=== PATIENT | female | born 1995 | race Caucasian/White ===

== ENCOUNTER 2017-03-30 16:01 | Emergency (ER) | END 2017-03-30 22:46 | disposition home or self-care (01) ==

== ENCOUNTER 2018-08-15 09:32 | Emergency (ER) | payer BC, MEDICAID ==
[~2018-08-15] VITALS: Ht 162.6 cm; Wt 105.0 kg
[~2018-08-15 09:32] MED LIST: DICY10CA40 PO; ETHY1TAB2 PO; IBUP-1542 PO; ONDA4TAB35 PO; TRAM50TA2 PO
[2018-08-15 09:36] VITALS: RESP 18; Ht 162.6 cm; Wt 105.0 kg
[2018-08-15] MEDS ORDERED: ONDANSETRON 4 MG INJ IV STA (10:16)
[2018-08-15] MEDS ORDERED: KETOROLAC 30 MG INJ IV STA (10:16)
[2018-08-15] MEDS ORDERED: SOD CHLORIDE 0.9% 1,000 ML IV STA (10:16)
[2018-08-15] MEDS ORDERED: SOD CHLORIDE 0.9% 100 ML ONE (12:01)
[2018-08-15] MEDS ORDERED: IOHEXOL 300MG/ML 150 ML BTL ONE (12:01)
[2018-08-15] MEDS ORDERED: NITR-58 PO (12:36)
[2018-08-15] MEDS ORDERED: ACET500C5 PO (12:36)
[2018-08-15] MEDS ORDERED: ONDA4TAB14 PO (13:25)
[2018-08-15 13:28] VITALS: BP 111/63; PULSE 55
--- NOTE | 2018-08-15 14:49 | ERD ---
ER Documentation Chief Complaint Chief Complaint AP X 4 WEEKS WORSEN X 3 DAYS HPI 22-year-old female presenting with abdominal pain x4 weeks. Patient states the pain is worsened over the last 3 days. Denies any vomiting. Denies diarrhea. Has normal urination. Denies chest pain or shortness of breath. Denies fevers. Has a history of PCOS. Allergy to penicillin. Surgical history denies. Social history denies ROS All systems reviewed and are negative except as per history of present illness. Medications Home Meds Active Scripts Ondansetron (Ondansetron Odt) 4 Mg Tab.rapdis, 4 MG PO Q6H PRN for NAUSEA AND/OR VOMITING, #10 TAB Prov:RUDDY CABRAL PA-C 08/15/18 Acetaminophen* (Tylophen*) 500 Mg Capsule, 2 CAP PO Q8H PRN for PAIN AND OR ELEVATED TEMP, #20 CAP Prov:RUDDY CABRAL PA-C 08/15/18 Nitrofurantoin Monohyd Macrocr* (Macrobid*) 100 Mg Capsr, 100 MG PO BID for 14 Days, CAP Prov:RUDDY CABRAL PA-C 08/15/18 Ethynodiol D-Ethinyl Estradiol (Zovia 1-35E Tablet) 1 Each Tablet, 1 EACH PO TID, #1 PACKET Take 1 pill every 8 hours until bleeding stops. Once bleeding stops, take 1 pill every 12 hours for 2 days only. After 2 day period, take 1 pill daily until pack is finished. Prov:DAMIEN MITTAL PA-C 03/30/17 Tramadol HCl (Tramadol HCl) 50 Mg Tablet, 50 MG PO Q4 PRN for PAIN, #20 TAB Prov:KELLIE PINZON NP 03/19/15 Ibuprofen* (Ibuprofen*) 600 Mg Tablet, 600 MG PO Q6H PRN for pa, #30 TAB Prov:KELLIE PINZON NP 03/19/15 Ondansetron Hcl* (Zofran* ODT) 4 mg -ODT Tab.disper, 4 MG PO Q4H PRN for NAUSEA AND OR VOMITING, #30 TAB Prov:KELLIE PINZON NP 03/19/15 Dicyclomine HCl (Dicyclomine HCl) 10 Mg Capsule, 10 MG PO QID, #30 CAP Prov:KELLIE PINZON [employer] 03/19/15 Reported Medications [none] Unknown Strength No Conflict Check 03/19/15 Allergies Allergies: Coded Allergies: Penicillins (Verified Allergy, Intermediate, RASH, 08/15/18) morphine (Verified Allergy, Unknown, 08/15/18) PMhx/Soc Medical and Surgical Hx: pt denies Medical Hx, pt denies Surgical Hx Hx Alcohol Use: No Hx Substance Use: No Hx Tobacco Use: No FmHx Family History: No diabetes, No coronary disease, No other Physical Exam Vitals Vital Signs Date Temp Pulse Resp B/P (MAP) Pulse Ox O2 O2 Flow FiO2 Time Delivery Rate 08/15/18 55 111/63 13:28 (79) 08/15/18 98.1 79 18 128/79 99 09:36 (95) Physical Exam GENERAL: The patient is well-appearing, well-nourished, in no acute distress HEENT: Atraumatic. Conjunctivae are pink. Pupils equal, round, and reactive to light. There is no scleral icterus. Tympanic membranes clear bilaterally. Oropharynx clear. NECK: C-spine is soft and supple. There is no meningismus. There is no cervical lymphadenopathy. CHEST: Clear to auscultation bilaterally. There are no rales, wheezes or rhonchi. HEART: Regular rate and rhythm. No murmurs, clicks, rubs or gallops. ABDOMEN:Soft, nontender and nondistended. Good bowel sounds. No rebound or guarding. No gross peritonitis. No gross organomegaly or masses. Result Diagram: 08/15/18 1020 08/15/18 1020 Results 24 hrs Laboratory Tests Test 08/15/18 10:20 08/15/18 10:33 White Blood Count 8.9 10^3/ul Red Blood Count 4.67 10^6/ul Hemoglobin 12.6 g/dl Hematocrit 39.5 % Mean Corpuscular Volume 84.6 fl Mean Corpuscular Hemoglobin 27.0 pg Mean Corpuscular Hemoglobin Concent 31.9 g/dl Red Cell Distribution Width 13.3 % Platelet Count 247 10^3/UL Mean Platelet Volume 9.1 fl Immature Granulocytes % 0.300 % Neutrophils % 57.8 % Lymphocytes % 33.6 % Monocytes % 6.7 % Eosinophils % 1.1 % Basophils % 0.5 % Nucleated Red Blood Cells % 0.0 /100WBC Immature Granulocytes # 0.030 10^3/ul Neutrophils # 5.1 10^3/ul Lymphocytes # 3.0 10^3/ul Monocytes # 0.6 10^3/ul Eosinophils # 0.1 10^3/ul Basophils # 0.0 10^3/ul Nucleated Red Blood Cells # 0.0 10^3/ul Urine Color YELLOW Urine Clarity SLIGHTLY CLOUDY Urine pH 5.0 Urine Specific [place] 1.027 Urine Ketones NEGATIVE mg/dL Urine Nitrite NEGATIVE mg/dL Urine Bilirubin NEGATIVE mg/dL Urine Urobilinogen NEGATIVE mg/dL Urine Leukocyte Esterase 1+ [place]/ul Urine Microscopic RBC 1 /HPF Urine Microscopic WBC 12 /HPF Urine Squamous Epithelial Cells FEW /HPF Urine Bacteria FEW /HPF Urine Mucus FEW /HPF Urine Hemoglobin NEGATIVE mg/dL Urine Glucose NEGATIVE mg/dL Urine Total Protein NEGATIVE mg/dl Sodium Level 142 mmol/L Potassium Level 4.0 mmol/L Chloride Level 106 mmol/L Carbon Dioxide Level 27 mmol/L Anion Gap 9 Blood Urea Nitrogen 15 mg/dl Creatinine 0.71 mg/dl Est Glomerular Filtrat Rate mL/min > 60 mL/min Glucose Level 84 mg/dl Calcium Level 9.2 mg/dl Total Bilirubin 0.7 mg/dl Direct Bilirubin 0.00 mg/dl Indirect Bilirubin 0.7 mg/dl Aspartate Amino Transf (AST/SGOT) 18 IU/L Alanine Aminotransferase (ALT/SGPT) 16 IU/L Alkaline Phosphatase 137 IU/L Total Protein 8.2 g/dl Albumin 4.4 g/dl Globulin 3.80 g/dl Albumin/Globulin Ratio 1.15 Lipase 212 U/L POC Beta HCG, Qualitative NEGATIVE Current Medications Medications Dose Sig/Josie Start Time Status Last (Trade) Ordered Route PRN Stop Time Admin Dose Reason Admin Sodium 1,000 ml @ Q1H STAT 08/15/18 DC 08/15/18 Chloride 1,000 mls/hr IV 10:16 10:38 08/15/18 11:15 Ondansetron 4 mg ONCE STAT 08/15/18 DC 08/15/18 HCl (Zofran IV 10:16 10:38 Inj) 08/15/18 10:17 Ketorolac 30 mg ONCE STAT 08/15/18 DC 08/15/18 Tromethamine IV 10:16 10:38 (Toradol) 08/15/18 10:17 Sodium 100 ml @ ud STK-MED 08/15/18 DC 08/15/18 Chloride ONCE .ROUTE 12:01 12:15 08/15/18 12:02 Iohexol 150 ml STK-MED 08/15/18 DC 08/15/18 (Omnipaque ONCE .ROUTE 12:01 12:15 300mg/ ml) 08/15/18 12:02 Procedures/MDM DIAGNOSTIC IMAGING REPORT Patient: JAMIE CROOKS : 1995 Age: 22 Sex: F MR #: [id number] DOS: 08/15/18 1016 Ordering MD: FRANKO CABRAL PA-C Location: [facility] Room/Bed: AMENDMENT: 08/15/2018 12:39:54 PM Armando Hernadez M.d PROCEDURE: CT Abdomen and pelvis with contrast. CLINICAL INDICATION: Abdominal pain TECHNIQUE: CT scan of the abdomen and pelvis with contrast was performed on a multidetector high-resolution CT scan. The patient was scanned following the uncomplicated intravenous administration of 100 cc Omnipaque 300. Coronal and sagittal reformatted images were obtained from the axial source images. Standard CT of the abdomen pelvis with contrast protocols were performed. The total exam CTDI equals 23.69 mGy and the total exam DLP equals 1304.62 mGy- cm. One or more of the following dose reduction techniques were used: - Automated exposure control. - Adjustment of the mA and/or kV according to patient size. Use of iterative reconstruction technique. Dicom images are available COMPARISON: CT abdomen pelvis 03/19/2015 FINDINGS: The kidneys are normal in size without calcified calculi hydronephrosis or intra renal masses bilaterally. No evidence ureteral calcified calculi or dilatation. Partially contracted urinary bladder with moderate circumferential urinary bl adder wall thickening likely all due to lack of optimal distension. Cystitis cannot be excluded. Anteverted anteflexed otherwise unremarkable uterus. No adnexal masses. No evidence of intra-abdominal free fluid, free air, abscesses or lymphadenopathy. Note there are prominent nonspecific lymph nodes in the right mid mesentery and rule out mesenteric lymphadenitis. Stomach, small bowel, large bowel and appendix are unremarkable. Aorta unremarkable. Abdominal pelvic wall unremarkable. Lung bases unremarkable. Osseous structures unremarkable. IMPRESSION: 1. No evidence of gastrointestinal disease. 2. No calcified urinary calculi or obstructive uropathy. 3. Prominent but nonspecific lymph nodes in the right mid mesentery may represent mesenteric lymphadenitis. No lymphadenopathy. DIAGNOSTIC IMAGING REPORT Patient: JAMIE CROOKS : 1995 Age: 22 Sex: F MR #: [id number] DOS: 08/15/18 1016 Ordering MD: FRANKO CABRAL PA-C Location: [facility] Room/Bed: PROCEDURE: US Pelvis CLINICAL INDICATION: Pelvic pain and lower abdominal pain. TECHNIQUE: Transabdominal and transvaginal sonographic evaluation of the pelvis was performed. COMPARISON: 03/30/2017. FINDINGS: Uterus is anteverted and measures 7 x 3.3 x 3.6 cm. Endometrium measures 7 mm in thickness, within normal limits. No uterine masses are seen. Right ovary measures 3.2 x 1.8 x 2.3 cm. Left ovary measures 3 x 2 x 2.6 cm. Multiple small follicles are seen in both ovaries. No suspicious adnexal masses are seen. There is no free pelvic fluid. IMPRESSION: 1. Unremarkable pelvic sonogram. MDM: 42-year-old female presenting with abdominal pain x4 weeks. Patient has findings consistent with urinary tract infection however CT scan and ultrasound are within normal limits. Patient is discharged with supportive medications. I have low suspicion for acute abdominal emergency at this time. Patient is told symptoms change or worsen to return immediately to the ER. Patient understood and compliant will return if symptoms change. All questions answered at discharge Departure Diagnosis: Primary Impression: UTI (urinary tract infection) Additional Impression: Abdominal pain Condition: Stable Patient Instructions: Abdominal Pain, Understanding Urinary Tract Infections (UTIs) Referrals: [facility] YOU HAVE RECEIVED A MEDICAL SCREENING EXAM AND THE RESULTS INDICATE THAT YOU DO NOT HAVE A CONDITION THAT REQUIRES URGENT TREATMENT IN THE EMERGENCY DEPARTMENT. FURTHER EVALUATION AND TREATMENT OF YOUR CONDITION CAN WAIT UNTIL YOU ARE SEEN IN YOUR DOCTORS OFFICE WITHIN THE NEXT 1-2 DAYS. IT IS YOUR RESPONSIBILITY TO MAKE AN APPOINTMENT FOR FOLOW-UP CARE. IF YOU HAVE A PRIMARY DOCTOR --you should call your primary doctor and schedule an appointment IF YOU DO NOT HAVE A PRIMARY DOCTOR YOU CAN CALL OUR PHYSICIAN REFERRAL HOTLINE AT IF YOU CAN NOT AFFORD TO SEE A PHYSICIAN YOU CAN CHOSE FROM THE FOLLOWING [facility] [address] [facility] [address] [facility] [address] [facility] [address] [facility] [facility] [address] [facility]. [facility] [address] Additional Instructions: FOLLOW UP WITH YOUR PRIMARY CARE PHYSICIAN TOMORROW.Return to this facility if you are not improving as expected. RUDDY CABRAL PA-C August 15, 2018 14:49
== END 2018-08-15 13:29 | disposition home or self-care (01) ==
LOC: FTE 09:32
DX: N39.0 Urinary tract infection, site not specified (principal); R10.2 Pelvic and perineal pain
CPT/HCPCS: 36415; 74177; 76830; 76856; 80053; 81001; 81025; 83690; 85025; 96361; 96374; 96375; J1885; J2405; J7030; Q9967; Z7502; Z7610